=== PATIENT | female | born 1995 | race Hispanic/Latino ===

== ENCOUNTER → 2018-08-02 | Outpatient (CLI) | payer OTHER | LOC: M RAD 06:59 | DX: Z36.89 Encounter for other specified antenatal screening (principal); Z3A.33 33 weeks gestation of pregnancy | CPT/HCPCS: 76811 ==

== ENCOUNTER 2018-08-13 23:12 | Outpatient (CLI) | payer OTHER | END 2018-08-14 00:11 | disposition home or self-care (01) | LOC: M LDO 23:12 | DX: O47.03 False labor before 37 completed weeks of gestation, third trimester (principal); Z3A.36 36 weeks gestation of pregnancy; O62.0 Primary inadequate contractions | CPT/HCPCS: 59025 ==

== ENCOUNTER → 2018-08-16 | Outpatient (CLI) | payer OTHER | LOC: M RAD 12:41 | DX: O36.5930 Maternal care for other known or suspected poor fetal growth, third trimester, not applicable or unspecified (principal); Z3A.35 35 weeks gestation of pregnancy ==

== ENCOUNTER 2018-08-25 09:10 | Outpatient (CLI) | payer OTHER | END 2018-08-25 10:00 | disposition home or self-care (01) | LOC: M LDO 09:10 | DX: O47.1 False labor at or after 37 completed weeks of gestation (principal); Z3A.39 39 weeks gestation of pregnancy | CPT/HCPCS: 59025 ==

== ENCOUNTER 2018-09-04 15:34 | Outpatient (CLI) | payer OTHER | END 2018-09-04 16:40 | disposition home or self-care (01) | LOC: M LDO 15:34 | DX: O47.1 False labor at or after 37 completed weeks of gestation (principal); Z3A.39 39 weeks gestation of pregnancy | CPT/HCPCS: 59025 ==

== ENCOUNTER 2018-09-05 09:52 | Inpatient (IN) | payer OTHER ==
[2018-09-05] MEDS: LACTATED RINGER'S 1000 ML IV (11:26)
[2018-09-05] MEDS: OXYTOCIN DRIP 30 UNITS in APPROPRIATE DILUENT 1 EA IV ×2 (11:37→18:52)
[2018-09-05 12:13] LABS: HEMATOCRIT 34.1 % (36.0-47.0); HEMOGLOBIN 10.8 g/dl (12.0-15.5); MEAN CORPUSCULAR HEMOGLOBIN 25.4 pg (27.0-33.0); MEAN CORPUSCULAR HGB CONC 31.7 g/dl (32.0-36.5); MEAN CORPUSCULAR VOLUME 80.2 fl (80.0-96.0); PLATELET COUNT, AUTOMATED 231 10^3/uL (150-450); RED BLOOD COUNT 4.25 10^6/uL (4.00-5.40); RED CELL DISTRIBUTION WIDTH 14.2 % (11.5-14.5)
[2018-09-05] MEDS: LR 1,000 ML IV (12:46)
[2018-09-05] MEDS: PROMETHAZINE INJ 25 MG/ML VIAL (J2550) IV (16:00)
[2018-09-05] MEDS: NALBUPHINE HCL 10 MG/ML AMP (J2300) IV (16:01)
[2018-09-05] MEDS: LIDOCAINE 1% MDV 20ML VIAL SC (19:00)
[2018-09-05] MEDS ORDERED: ACETAMINOPHEN 500 MG TAB PO (19:00)
[2018-09-05] MEDS ORDERED: ONDANSETRON 4MG/2ML VIAL (J2405) IV (19:00)
[2018-09-05] MEDS ORDERED: DOCUSATE SODIUM 100 MG CAP PO (19:00)
[2018-09-05] MEDS ORDERED: RHOGAM 300 MCG (1500 IU) INJ (J2790) IM (19:00)
[2018-09-05] MEDS ORDERED: DIBUCAINE 1% OINTMENT 30GM TOP (19:00)
[2018-09-05] MEDS ORDERED: MEASLES,MUMPS,RUBELLA VACCINE INJ (MMR-II) (90707) SC (19:00)
[2018-09-05] MEDS: IBUPROFEN 800 MG TAB PO (20:09)
[2018-09-06] MEDS: PRENATAL VITAMINS CHEWABLE TABLET PO (08:33)
[2018-09-06] MEDS ORDERED: LIDOCAINE 1% MDV 20ML VIAL As Ordered (15:48)
[2018-09-06] MEDS: IBUPROFEN 800 MG TAB PO (16:24)
[2018-09-07] MEDS: IBUPROFEN 800 MG TAB PO (05:11)
[2018-09-07] MEDS: PRENATAL VITAMINS CHEWABLE TABLET PO (08:49)
== END 2018-09-07 13:30 | disposition home or self-care (01) | DRG 775 ==
LOC: M LDI 09:52 → M OBS 21:34
PROVIDERS: Obstetrics & Gynecology
PROC: 10E0XZZ Delivery of Products of Conception, External Approach (ICD-10-PCS; principal; 2018-09-05)
PROC: 0HQ9XZZ Repair Perineum Skin, External Approach (ICD-10-PCS; 2018-09-05)
PROC: 3E033VJ Introduction of Other Hormone into Peripheral Vein, Percutaneous Approach (ICD-10-PCS; 2018-09-05)
DX: O69.89X0 Labor and delivery complicated by other cord complications, not applicable or unspecified (principal); Z37.0 Single live birth; O70.0 First degree perineal laceration during delivery; Z3A.39 39 weeks gestation of pregnancy

== ENCOUNTER 2018-12-05 09:06 | Emergency (ER) | payer OTHER ==
[~2018-12-05] VITALS: Ht 160 cm; Wt 80.0 kg
[2018-12-05 09:06] VITALS: BP 136/62
[~2018-12-05 09:06] MED LIST: COLA100C5 PO; IBUP-1114 PO; MAPA500T2 PO; PRENTAB9 PO
[2018-12-05] MEDS ORDERED: PRED20TA PO (09:28)
[2018-12-05] MEDS ORDERED: ERYTOIN8 OP (09:50)
== END 2018-12-05 09:40 | disposition home or self-care (01) ==
LOC: M ED 09:06
DX: L21.0 Seborrhea capitis (principal); H00.019 Hordeolum externum unspecified eye, unspecified eyelid

== ENCOUNTER 2019-02-20 22:00 | Emergency (ER) | payer OTHER ==
[~2019-02-20] VITALS: Ht 160 cm; Wt 81.4 kg
[~2019-02-20 22:00] MED LIST changes: +CLAR1TAB2 PO; +ERYTOIN8 OP; +EXCETAB80 PO; +PRED20TA PO
[2019-02-20] MEDS ORDERED: IBUP-1114 PO (22:12)
[2019-02-20 22:53] LABS: INFLUENZA A AMPLIFICATION NEGATIVE (NEGATIVE); INFLUENZA B AMPLIFICATION NEGATIVE (NEGATIVE)
[2019-02-21] MEDS ORDERED: ACETAMINOPHEN 325 MG TAB PO ONE (00:30)
[2019-02-21] MEDS ORDERED: KEFL500C17 PO (00:34)
[2019-02-21] MEDS ORDERED: CEPHALEXIN 500 MG CAP PO ONE (00:45)
[2019-02-21 00:46] VITALS: BP 116/67
== END 2019-02-21 00:47 | disposition home or self-care (01) ==
LOC: M ED 22:00
DX: J02.0 Streptococcal pharyngitis (principal)